=== PATIENT | male | born 1990 | race Caucasian/White ===

== ENCOUNTER 2017-01-12 13:17 | Emergency (ER) | payer OTHER | END 2017-01-12 15:10 | disposition home or self-care (01) | LOC: ER1 13:17 | DX: L02.415 Cutaneous abscess of right lower limb (principal); I10 Essential (primary) hypertension; E78.5 Hyperlipidemia, unspecified; F17.210 Nicotine dependence, cigarettes, uncomplicated; Z79.899 Other long term (current) drug therapy | CPT/HCPCS: 73564; 87070; 87077; 87186; 87205; 99283 ==

== ENCOUNTER 2017-03-09 20:07 | Emergency (ER) | payer OTHER | END 2017-03-09 21:55 | disposition left against medical advice (07) | LOC: ER1 20:07 | DX: Z53.21 Procedure and treatment not carried out due to patient leaving prior to being seen by health care provider (principal) ==

== ENCOUNTER 2017-03-25 17:44 | Emergency (ER) | payer OTHER ==
[2017-03-25 19:15] LABS: HEMOGLOBIN 14.6 gm/dl (14.0-17.5); RED BLOOD COUNT 4.96 M/UL (4.20-5.50); WHITE BLOOD COUNT 8.6 K/UL (4.5-11.0)
[2017-03-25 19:35] LABS: BUN/CREATININE RATIO 18 (0-10)
== END 2017-03-25 20:38 | disposition home or self-care (01) ==
LOC: ER1 17:44
PROVIDERS: Physician Assistant
DX: S09.90XA Unspecified injury of head, initial encounter (principal); S16.1XXA Strain of muscle, fascia and tendon at neck level, initial encounter; S20.211A Contusion of right front wall of thorax, initial encounter; S40.811A Abrasion of right upper arm, initial encounter; F17.210 Nicotine dependence, cigarettes, uncomplicated; Z88.5 Allergy status to narcotic agent; Z88.8 Allergy status to other drugs, medicaments and biological substances; W13.2XXA Fall from, out of or through roof, initial encounter; Y92.69 Other specified industrial and construction area as the place of occurrence of the external cause; Y99.0 Civilian activity done for income or pay; Z79.899 Other long term (current) drug therapy
CPT/HCPCS: 36415; 70450; 71260; 72125; 73060; 80053; 83690; 84484; 85025; 93005; 96374; 96375; 99284; J2270; J2405; J7050; Q9962

== ENCOUNTER 2017-03-29 16:11 | Emergency (ER) | payer OTHER | END 2017-03-29 18:33 | disposition home or self-care (01) | LOC: ER1 16:11 | DX: S09.90XA Unspecified injury of head, initial encounter (principal); G40.909 Epilepsy, unspecified, not intractable, without status epilepticus; Z79.899 Other long term (current) drug therapy; W51.XXXA Accidental striking against or bumped into by another person, initial encounter | CPT/HCPCS: 70110; 99283 ==

== ENCOUNTER 2017-04-02 19:35 | Emergency (ER) | payer OTHER | END 2017-04-02 20:22 | disposition left against medical advice (07) | LOC: ER1 19:35 | DX: Z53.21 Procedure and treatment not carried out due to patient leaving prior to being seen by health care provider (principal) ==

== ENCOUNTER 2017-04-08 01:01 | Emergency (ER) | payer OTHER | END 2017-04-08 05:25 | disposition home or self-care (01) | LOC: ER1 01:01 | DX: G44.89 Other headache syndrome (principal); I10 Essential (primary) hypertension; K21.9 Gastro-esophageal reflux disease without esophagitis; F17.210 Nicotine dependence, cigarettes, uncomplicated; G43.909 Migraine, unspecified, not intractable, without status migrainosus | CPT/HCPCS: 70450; 96374; 96375; 99284; J1100; J1200; J2765; J7030 ==